=== PATIENT | female | born 1965 | race Caucasian/White ===

== ENCOUNTER 2021-05-26 14:01 | Outpatient (CLI) | payer OTHER ==
--- NOTE | 2021-06-02 13:46 | Mammography Report ---
BILATERAL DIGITAL SCREENING MAMMOGRAM 3D/2D: 05/26/2021 CLINICAL: Routine screening. Comparison is made to exam dated: 04/16/2019 mammogram - [facility]. There are scatter ed fibroglandular elements in both breasts. No significant masses, calcifications, or other findings are seen in either breast. There has been no significant interval change. IMPRESSION: NEGATIVE There is no mammographic evidence of malignancy. A 1 year screening mammogram is recommended. This exam was interpreted at Station ID: [id number]. NOTE: For mammograms, a report in lay terms will be sent to the patient. Approximately 15% of breast malignancies will not be visualized mammographically. In the management of a palpable breast mass, a negative mammogram must not discourage biopsy of a clinically suspicious lesion. Electronically Signed By: Luz [email or web address]:06/02/2021 08:09:21 ACR BI-RADS Category 1: Negative 3341F PARENCHYMAL PATTERN: (A) - The breast(s) demonstrate(s) scattered fibroglandular densities. BI-RADS CATEGORY: (1) - 1 RECOMMENDATION: (ANNUAL) - Recommend routine annual screening mammography. [id number] 1 year screening LATERALITY: (B)
== END 2021-05-26 14:02 | disposition home or self-care (01) ==
LOC: DI 14:01
DX: Z12.31 Encounter for screening mammogram for malignant neoplasm of breast (principal)

== ENCOUNTER 2023-12-22 11:29 | Emergency (ER) | payer OTHER ==
[2023-12-22 12:12] LABS: RAPID STREP SCREEN Negative (Negative)
[2023-12-22 13:00] LABS: B. PARAPERTUSSIS- RESP PCR PAN NOT DETECTED; B. PERTUSSIS- RESP PCR PANEL NOT DETECTED; C. PNEUMONIAE- RESP PCR PANEL NOT DETECTED; CORONAVIRUS 229E-RESP PCR NOT DETECTED; CORONAVIRUS HKU1-RESP PCR NOT DETECTED; CORONAVIRUS NL63-RESP PCR NOT DETECTED; CORONAVIRUS OC43-RESP PCR NOT DETECTED; HUMAN METAPNEUMOVIRUS NOT DETECTED; INFLUENZA A- RESP PCR PANEL NOT DETECTED; INFLUENZA B - RESP PCR PANEL NOT DETECTED; M. PNEUMONIAE- RESP PCR PANEL NOT DETECTED; PARAINFLUENZA VIRUS 1 NOT DETECTED; PARAINFLUENZA VIRUS 2 NOT DETECTED; PARAINFLUENZA VIRUS 3 NOT DETECTED; PARAINFLUENZA VIRUS 4 NOT DETECTED; RHINOVIRUS/ENTEROVIRUS DETECTED; RSV- RESP PCR PANEL NOT DETECTED; SARS-CoV-2 -RESP PCR PANEL NOT DETECTED
--- NOTE | 2023-12-22 13:18 | XRAY Report ---
PROCEDURE: Chest 1V INDICATIONS: chest pain/cough TECHNIQUE: One view of the chest was acquired. COMPARISON: None. FINDINGS: Surgical changes and devices: None. Lungs and pleura: No pleural effusions or pneumothorax. Lungs are clear. Mediastinum: Mediastinal contours appear normal. Heart size is normal. Bones and chest wall: No suspicious bony lesions. Overlying soft tissues appear unremarkable. IMPRESSION: No acute cardiopulmonary process. Reviewed by: Kristin Batista MD on 12/22/2023 1:17 PM [facility] Approved by: Kristin Batista MD on 12/22/2023 1:17 PM [facility] Station ID: [id number]
--- NOTE | 2023-12-22 13:25 | ED Physician Documentation ---
PD HPI HEENT - Stated complaint Stated Complaint: COUGH,DEL REAL,CHILLS,CONGESTION - Chief complaint Chief Complaint: Resp - History obtained from History obtained from: Patient - Additional information Additional information: The patient comes to the emergency department chief complaint of a cough and congestion that started yesterday. She states that she has been having chills but has not measured a fever. She has had a burning discomfort across her chest especially when she breathes in. Patient has no underlying lung disorders. She states the coughing has been keeping her up at night. She has had some greenish sputum. She is a diabetic. No other complaints at this time. PD PAST MEDICAL HISTORY - Present Medications Home Medications: Ambulatory Orders Medication Instructions Recorded Confirmed Albuterol Sulf [Ventolin Hfa 1 - 2 puffs INH Q4HR PRN #1 each 12/22/23 Inhaler] Benzonatate [Tessalon] 200 mg PO TID PRN #20 cap 12/22/23 Ibuprofen [Motrin] 800 mg PO Q8H PRN #30 tablet 12/22/23 predniSONE [Deltasone] 10 mg PO [id number] #42 tab 12/22/23 - Allergies Allergies/Adverse Reactions: Allergies Allergy/AdvReac Type Severity Reaction Status Date / Time codeine AdvReac Unknown Verified 12/22/23 11:48 PD ED PE NORMAL - Vitals Vital signs reviewed: Yes - General General: Alert and oriented X 3, No acute distress, Well developed/nourished - HEENT HEENT: Atraumatic, PERRL, EOMI, Moist mucous membranes, Other (Hoarse voice) - Neck Neck: Supple, no meningeal sign - Cardiac Cardiac: RRR, No murmur - Respiratory Respiratory: No respiratory distress, Clear bilaterally (Rough upper airway sounds, otherwise clear), Other (Occasional congested cough. ) - Abdomen Abdomen: Soft, Non tender, Non distended - Derm Derm: Normal color, Warm and dry, No rash - Extremities Extremities: No deformity, No edema - Neuro Neuro: Alert and oriented X 3 - Psych Psych: Normal mood, Normal affect Results - Vitals Vitals: Vital Signs - 24 hr 12/22/23 11:35 Temperature 37.6 C Heart Rate 110 H Respiratory 16 Rate Blood Pressure 147/83 H O2 Saturation 99 Oxygen O2 Source Room air - Labs Labs: Laboratory Tests 12/22/23 12/22/23 11:40 11:40 Nasal Adenovirus (PCR) NOT DETECTED Nasal B. parapertussis DNA (PCR) NOT DETECTED Nasal Coronavir 229E PCR NOT DETECTED Nasal Coronavir HKU1 PCR NOT DETECTED Nasal Coronavir NL63 PCR NOT DETECTED Nasal Coronavir OC43 PCR NOT DETECTED Nasal Enterovir/Rhinovir PCR DETECTED A Nasal Influenza B PCR NOT DETECTED Nasal Influenza A PCR NOT DETECTED Nasal Parainfluen 1 PCR NOT DETECTED Nasal Parainfluen 2 PCR NOT DETECTED Nasal Parainfluen 3 PCR NOT DETECTED Nasal Parainfluen 4 PCR NOT DETECTED Nasal RSV (PCR) NOT DETECTED Nasal B.pertussis DNA PCR NOT DETECTED Nasal C.pneumoniae (PCR) NOT DETECTED Wojciech Human Metapneumo PCR NOT DETECTED Nasal M.pneumoniae (PCR) NOT DETECTED Nasal SARS-CoV-2 (PCR) NOT DETECTED Group A Strep Rapid Negative - Rads (name of study) Chest x-ray Relevant Findings:: Final report received, See rad report (neg) PD Medical Decision Making - ED course Complexity details: reviewed results, re-evaluated patient, considered differential, d/w patient ED course: The patient was treated symptomatically with ibuprofen and prednisone, and workup with chest x-ray, respiratory PCR panel, and strep test. The patient's strep test and chest x-ray were negative. The patient's PCR panel was positive for rhinovirus. I discussed the findings with the patient. She is stable for discharge home but we have discussed symptomatic management at home. We have also discussed the usual indications for return. Departure - Departure Disposition: 01 Home, Self Care Clinical Impression: Rhinovirus, Viral upper respiratory infection Condition: Stable Instructions: ED Viral Syndrome Prescriptions: Albuterol Sulf [Ventolin Hfa Inhaler] 1 - 2 puffs INH Q4HR PRN #1 each PRN Reason: Shortness Of Air/Wheezing predniSONE [Deltasone] 10 mg PO [id number] #42 tab Ibuprofen [Motrin] 800 mg PO Q8H PRN #30 tablet PRN Reason: PAIN &/OR FEVER Benzonatate [Tessalon] 200 mg PO TID PRN #20 cap PRN Reason: Cough Comments: Your strep test and your chest x-ray look good. Your viral panel was positive for rhinovirus, which is a common upper respiratory virus which causes cold and flulike symptoms. The duration of the illness can be anywhere from several days to a couple of weeks. As far as the concerned about exposing your parents, it is not exactly able to be determined how long you will be contagious, but the best course of action is probably just to stay away from them for the next week or so. As this is a viral illness, antibiotics are not indicated. A cough productive of sputum is common in the early phase of any upper respiratory illness and most viral illnesses will future the symptoms as well. Prescriptions for steroid taper, ibuprofen, and albuterol inhaler, and cough medicine have been electronically transmitted to the [facility] pharmacy in [place]. Please pick these up after your visit today. Be sure to get plenty of rest and fluids to drink. If you feel like your symptoms are drastically worsening, you should return to the emergency department.
[2023-12-22] MEDS: predniSONE 20 MG TABLET PO STA (13:32)
[2023-12-22] MEDS: IBUPROFEN 800 MG TABLET PO STA (13:32)
[2023-12-22 13:49] VITALS: BP 147/89; O2SAT 100
== END 2023-12-22 14:01 | disposition home or self-care (01) ==
LOC: ED 11:29
DX: J06.9 Acute upper respiratory infection, unspecified (principal); B34.8 Other viral infections of unspecified site; Z79.899 Other long term (current) drug therapy
CPT/HCPCS: 71045; 87070; 87430; 87633; 99284; A9270; J7512